=== PATIENT | male | born 1960 | race Caucasian/White ===

== ENCOUNTER 2024-07-30 10:31 | Outpatient (REF) | payer OTHER, SELFPAY ==
--- NOTE | ~2024-07-30 | XR_ITS ---
EXAMINATION: XR HAND 3 OR MORE VIEWS RIGHT HISTORY: M79.641 - Pain in right hand COMPARISON: There are no prior studies available for comparison. FINDINGS: Three views of the right hand are submitted. Osseous mineralization is normal. There is no fracture or dislocation. The joint spaces are preserved. The soft tissues are unremarkable. XR/XR hand RT min 3V IMPRESSION: Unremarkable examination of the right hand. Electronically signed by: Usama Hassan MD 07/31/2024 07:33 AM RENA
== END 2024-07-30 10:32 | disposition home or self-care (01) ==
LOC: HO.HOSX 10:31
DX: M65.331 Trigger finger, right middle finger (principal); M79.641 Pain in right hand
CPT/HCPCS: 73130

== ENCOUNTER → 2024-07-30 10:41 | Outpatient (BNV) | payer OTHER, SELFPAY | PROVIDERS: Visit Provider Radiology Diagnostic Radiology | DX: M79.641 Pain in right hand (principal) | CPT/HCPCS: 73130 ==

== ENCOUNTER 2024-09-08 07:46 | Day surgery (SDC) | payer OTHER, SELFPAY ==
--- OUTSIDE RECORDS SUMMARY | 2024-09-05 14:49 | XMS_ITS | Continuity of Care Document ---
Author Organization [facility] Address [address] [place] [address]- Care Team Providers Care Teenage Babysitter Name Role Phone Mark Chavarria MD Primary Care Physician Encounter [facility] Date(s): 07/25/24 - 08/24/24 [facility] [address] [place] [address]- Encounter Type: Triage Allergies, Adverse Reactions, Alerts Substance Criticality Severity Reaction Reaction Severity Status Shrimp Active Immunizations Given and Recorded Vaccine Date Status Refusal Reason tetanus/diphtheria/pertussis, acel(Tdap) 1 05/09/23 Given influenza virus vaccine, inactivated 2 05/09/23 Gi nava influenza virus vaccine, inactivated 05/28/19 Give n influenza virus vaccine, inactivated 3 05/27/18 Gi nava influenza virus vaccine, inactivated 4 05/10/16 Gi nava influenza virus vaccine, inactivated 5 04/19/15 Gi nava influenza virus vaccine, inactivated 6 06/19/13 Gi nava influenza virus vaccine, inactivated 7 03/22/11 Gi nava Influenza Virus Vaccine (oldterm) 05/01/20 Recorde d Afluria (oldterm) 05/21/17 Given Pneumococcal Poly (PPV23) (oldterm) 8 03/22/11 Giv en Tet/Diphth/Acel, Pertussis (oldterm) 07/16/09 Give n tetanus-diphtheria toxoids (Td) 08/01/97 Given 1Result Comment: [id number] 2Result Comment: [id number] 3Result Comment: [05/27/2018] [id number] 4Result Comment: [05/10/2016] all 3 questions answered 5Result Comment: [04/19/2015] all screening questions answered 6Admin Note: vis 12/31/12 7Admin Note: vis 01/24/11 8Admin Note: vis 04-06-2009 Medications buPROPion 100 mg/12 hours (SR) oral tablet, extended release 1 tablet = 100 mg, By Mouth, 2 times a day, do not crush or chew, # 180 tablet, 3 Refills, Maintenance, 03/15/22 4:23:00 PM EDT, ER Tablet, [facility]/pharmacy #[id number], 170.18, cm, 03/15/22 15:58:00 EDT, Height Start Date: 03/15/22 Stop Date: 03/10/23 Status: Ordered Quantity: 180.0 Unit: tablet Repeat number: 4 CoQ10 = 300 mg, By Mouth, Daily, 0 Refills, Maintenance, 03/03/15 9:41:02 AM EDT Start Date: 03/03/15 Status: Ordered Repeat number: 1 diclofenac sodium 50 mg oral delayed release tablet 1 tablet = 50 mg, By Mouth, 2 times a day, Take with food, # 42 tablet, 0 Refills, Maintenance, 07/03/24 4:41:00 PM EST, EC Tablet, [facility]/pharmacy #[id number], Partial fill upon patient request if the prescription is for a schedule II opioid drug., 170.18, cm, 07/03/24 16:29:00 EST, Height Start Date: 07/03/24 Stop Date: 07/24/24 Status: Ordered Quantity: 42.0 Unit: tablet Repeat number: 1 Indication: Trigger finger, unspecified finger FLUoxetine 20 mg oral capsule See Instructions, TAKE 1 CAPSULE BY MOUTH DAILY, # 90 capsule, Refills 2, Tot. Refills 2, Maintenance, 10/12/23 10:36:00 AM EDT, Instructions Replace Required Details, Route to Pharmacy Electronically, [facility]/pharmacy #[id number], 170.18, cm, 05/09/23 15:12:00 EST, Height Start Date: 10/12/23 Status: Ordered Quantity: 90.0 Unit: capsule Repeat number: 3 FLUoxetine 20 mg oral capsule See Instructions, 1 CAPSULE BY MOUTH DAILY, # 90 capsule, Refills 1, Maintenance, 09/27/22 11:31:00 AM EDT, Instructions Replace Required Details, Route to Pharmacy Electronically, [facility] ST[id number], 170.18, cm, 03/15/22 15:58:00 EDT, Height Start Date: 09/27/22 Status: Ordered Quantity: 90.0 Unit: capsule Repeat number: 1 lisinopril 5 mg oral tablet See Instructions, TAKE 1 TABLET BY MOUTH EVERY DAY, # 90 tablet, Refills 1, Maintenance, 01/14/24 9:34:00 AM EDT, Instructions Replace Required Details, Route to Pharmacy Electronically, [id number], 170.18, cm, 01/08/24 15:57:00 EDT, Height Start Date: 01/14/24 Status: Ordered Quantity: 90.0 Unit: tablet Repeat number: 1 rosuvastatin 40 mg oral tablet 1 tablet, By Mouth, Daily, # 90 tablet, 1 Refills, Maintenance, 07/25/24 11:48:00 AM EST, [id number], 170.18, cm, 07/03/24 16:29:00 EST, Height Start Date: 07/25/24 Status: Ordered Quantity: 90.0 Unit: tablet Repeat number: 1 Shingrix intramuscular injection 0.5 mL, Intramuscular, Once, repeat dose in 2 to 6 months, # 0.5 mL, 1 Refills, Soft Stop, 03/15/22 4:20:00 PM EDT Start Date: 03/15/22 Status: Ordered Quantity: 0.5 Unit: mL Repeat number: 2 Problem List Condition Confirmation Course Effective Dates Status H ealth Status Informant Depression Confirmed Active Hypertension Confirmed Active Mixed hyperlipidemia Confirmed Active Low back pain Confirmed Active Major depression in partial remission Confirmed Active TUNG (obstructive sleep apnea) Confirmed Active Moderate tobacco use disorder Confirmed Active Social History Social History Type Response Smoking Status Former smoker, quit more than 30 days ago; Interested in cessation: No entered on: 01/08/24 Sex Sex Representation Male (finding) Patient Care team information Care Team Personnel Name: Mark Chavarria MD Position: [facility] Physician - Primary Care Member Role: PCP Address: [address] [place] [address]- Telecom: Care Team Related Persons Name: BENJY ROSAS Insurance Providers Guarantor [facility]: [facility] Payer: [facility] Member Number: NA Policy Number: NA Group Number: NA
[2024-09-08 08:38] VITALS: BMI 26.0
[2024-09-08 08:43] VITALS: BP 159/76; PULSE 67; RESP 16; TEMP 36.4; O2SAT 96
--- NOTE | 2024-09-08 09:04 | MHC.SHP ---
Pre-Procedural Eval Section A - 24 Hr Update-Section A only Date of Service: 09/08/24 The patient is an INPATIENT: No Changes since office visit: No Cold of Flu in the past 2 weeks, No New Medical Problems, No Changes in Medication and No Patient answered all questions The patient has been examined within 24 hours of the surgical procedure. The History & Physical has been completed within 30 days and I have reviewed it.: Yes Section B - Complete if H&P > 30 days Chief Complaint: Trigger finger, right middle finger Allergies: Allergies Allergy/AdvReac Type Severity Reaction Status Date / Time shrimp Allergy Anaphylaxis Verified 07/30/24 10:48 Plan Diagnosis/Plan: Unchanged I have reviewed the history and physical and performed a pertinent physical examination on my patient. No changes have occurred unless specified. Time Spent With Patient Time: Total time managing care of this patient today ____ minutes.
--- NOTE | 2024-09-08 09:05 | P.OP_ITS ---
Operative Note Operative Note Date of Service: 09/08/24 Narrative: Operative Note Preop diagnosis: 1. Right middle finger Trigger finger Postop diagnosis: Same Procedure: 1. Right middle finger A1 alejandrina release Surgeon: Sunitha Ponce MD Nip Wrapper: None Anesthesia: local block using 1% lidocaine with epinephrine Findings: No locking or catching after A1 alejandrina release EBL: Less than 5 mL Tourniquet time: None Specimens: None Complications: None Disposition: Brought to recovery room in stable condition Plan: Follow-up for 10-14 days for wound check and suture removal Indications: The patient is 64 years old, with a right middle finger ying er finger that has been unresponsive to nonoperative management. The risks and benefits of operative treatment including but not limited to risk of damage to blood vessels, nerves, tendons, infection, persistent pain, persistent symptoms, recurrence or possible need for additional surgery were discussed with the patient and the patient wishes to proceed with surgery. Procedure: Once consent was obtained a local block was performed in the preop area using a combination of 1% lidocaine with epinephrine. The patient was then brought back to the operating suite and placed on the operative table in supine position. The right upper extremity was prepped and draped in a standard surgical fashion. Once assured that we had a good block, a 1.5 cm oblique incision was made centered over the A1 alejandrina of the right middle finger . The incision was made through the skin to the subcutaneous tissues using a #15 blade. Careful dissection was made down to the level of the A1 alejandrina using tenotomy scissors, with care being taken to protect the nearby neurovascular structures. A longitudinal incision was made in the A1 alejandrina 1st using a #15 blade, then using tenotomy scissors under direct visualization. The A1 alejandrina was noted to be thickened. Following our A1 alejandrina release, we no longer saw any locking or catching of the digit with flexion and extension. Once satisfied with our A1 alejandrina release the wound was copiously irrigated with normal saline and hemostasis was obtained with a brief period of local pressure. The skin edges were reapproximated with some 5.0 nylon suture material and a sterile dressing was applied. The patient appears to have tolerated the procedure well and with no complications. All digits were well vascularized at the conclusion of the case.
[2024-09-08 11:48] VITALS: BP 144/71; PULSE 79; RESP 16; O2SAT 97
== END 2024-09-08 11:49 | disposition home or self-care (01) ==
PROVIDERS: PCP Internal Medicine; Visit Provider Orthopaedic Surgery
PROC: (CPT 26055; principal; 2024-09-08 09:50)
DX: M65.331 Trigger finger, right middle finger (principal); M79.644 Pain in right finger(s); M25.541 Pain in joints of right hand; Z79.899 Other long term (current) drug therapy
CPT/HCPCS: 26055; J0171; J2003

== ENCOUNTER → 2024-09-08 07:46 | Outpatient (BNV) | payer OTHER, SELFPAY | PROVIDERS: PCP Internal Medicine; Visit Provider Orthopaedic Surgery | DX: M65.331 Trigger finger, right middle finger (principal) | CPT/HCPCS: 26055 ==

== ENCOUNTER 2024-09-22 09:31 | Outpatient (AMB) | payer OTHER, SELFPAY ==
--- NOTE | 2024-09-22 09:38 | A.OFFVIS_ITS ---
Vital Signs 09/22/24 09:44 Height 5 ft 7 in Weight 165 lb BMI 25.8 Handedness Right Intake Visit Reasons: PO RT MF trigger 09/08/24 AR Intake Note: Eliseo is a 64 year old right hand dominant male who presents today for a post operative visit s/p Right middle finger A1 alejandrina release DOS: 09/08/24 w/ Dr Suintha Ponce. Patient reports he feels stiffness in his right middle finger. He denies any drainage from his incision site. Denies numbness and tingling. He believes his finger has resolved but can not tell since he can not make a full closed fist. He says he has some clicking still but thinks it may be due to swelling. Allergies shrimp Allergy (Verified 09/22/24 09:53) Anaphylaxis HPI HPI PO RT MF trigger 09/08/24 AR: Details: Eliseo is a 64 year old right hand dominant male who presents today for a post operative visit s/p Right middle finger A1 alejandrina release DOS: 09/08/24 w/ Dr Sunitha Ponce. Patient reports he feels stiffness in his right middle finger. He denies any drainage from his incision site. Denies numbness and tingling. He believes his finger has resolved but can not tell since he can not make a full closed fist. He says he has some clicking still but thinks it may be due to swe lling. Denies any ongoing locking or catching. [facility] Social History Current occupational status: employed Current occupation: [employer] Review of Systems Const All systems reviewed & are unremarkable except as noted in HPI and below Physical Exam Vital Signs: BMI result Body Mass Index 25.8 Extrem Other: Patient is alert, oriented, and in no acute distress. Neuro: Normal sensation of the tips of all digits of the right hand at this time Vascular: Cap refill brisk Pain: No Tenderness to palpation of the A1 alejandrina of the right middle finger ROM: There is no further visible and palpable locking and catching of the right middle finger when in a flexed position Patient is able to flex and extend all other digits of the right hand fully and without difficulty Skin: Well approximated and well healing incision site noted over the A1 alejandrina of the right middle finger No lacerations or abrasions. General: No ecchymosis, erythema, or evidence of infection. Psych: Appears grossly normal Affect normal Attitude cooperative Assessment & Plan Assessment & Plan (1) Trigger finger, right middle finger: Code(s): M65.331 - Trigger finger, right middle finger Category: Medical Plan 1. Status post right middle finger trigger release DOS 09/08/2024 Patient appears to be recovering well postoperatively Patient is educated about the typical recovery course At this time, patient was informed that he will require no acute follow-up with us, as he is recovering very well Patient was amenable to this plan Patient will follow-up as needed with any acute concerns Coding Level of Care Code Global (02350) Diagnoses Trigger finger, right middle finger M65.331
[2024-09-22 09:44] VITALS: BMI 25.8
== END 2024-09-22 09:58 | disposition home or self-care (01) ==
LOC: HO.HOS 09:31
DX: M65.331 Trigger finger, right middle finger (principal)
CPT/HCPCS: 99024